=== PATIENT | female | born 1990 | race American Indian/Alaskan Native ===

== ENCOUNTER 2017-08-22 11:15 | Inpatient (IN) | payer OTHER ==
[~2017-08-22] VITALS: Ht 152.4 cm; Wt 69.9 kg
[2017-09-04] MEDS ORDERED: PRENATAL TABLE1 EAC1 PO (08:49)
[2017-09-04] MEDS ORDERED: DUI500 PO (08:51)
== END 2017-09-06 13:35 | disposition home or self-care (01) | DRG 775 ==
LOC: LDR 09-04 07:01 → OB/GYN 09-04 15:49
PROC: 10E0XZZ Delivery of Products of Conception, External Approach (ICD-10-PCS; principal; 2017-09-04)
PROC: 10907ZC Drainage of Amniotic Fluid, Therapeutic from Products of Conception, Via Natural or Artificial Opening (ICD-10-PCS; 2017-09-04)
PROC: 3E033VJ Introduction of Other Hormone into Peripheral Vein, Percutaneous Approach (ICD-10-PCS; 2017-09-04)
PROC: 4A1HXCZ Monitoring of Products of Conception, Cardiac Rate, External Approach (ICD-10-PCS; 2017-09-04)
DX: O99.824 Streptococcus B carrier state complicating childbirth (principal); Z3A.39 39 weeks gestation of pregnancy; Z37.0 Single live birth

== ENCOUNTER 2022-11-25 13:04 | Emergency (ER) | payer OTHER ==
[~2022-11-25] VITALS: Ht 152.4 cm; Wt 60.3 kg
[~2022-11-25 13:04] MED LIST: DUI500 PO; PRENATAL TABLE1 EAC1 PO
== END 2022-11-25 15:57 | disposition home or self-care (01) ==
LOC: ER 13:04
DX: O20.0 Threatened abortion (principal); Z3A.14 14 weeks gestation of pregnancy; Z88.6 Allergy status to analgesic agent